=== PATIENT | female | born 1960 | race Caucasian/White ===

== ENCOUNTER → 2021-09-05 | Outpatient (CLI) | payer OTHER ==
[~2021-09-05] MED LIST: CEPH500 PO; DIPH50 PO; HYDACE5 PO; PRED10 PO; PROM25 PO; RXCODACET PO
== END | disposition home or self-care (01) ==
LOC: LAB SHORT 09:30
DX: L02.92 Furuncle, unspecified (principal)
CPT/HCPCS: 87070; 87077; 87147; 87186; 87205

== ENCOUNTER → 2022-02-16 | Outpatient (CLI) | payer OTHER | END | disposition home or self-care (01) | LOC: LAB SHORT 15:26 → LAB 15:26 | DX: L02.211 Cutaneous abscess of abdominal wall (principal) | CPT/HCPCS: 87070; 87075; 87077; 87147; 87186; 87205 ==

== ENCOUNTER → 2023-04-15 | Outpatient (CLI) | payer OTHER | LOC: LAB SHORT 12:15 → LAB 12:15 | DX: L02.92 Furuncle, unspecified (principal) | CPT/HCPCS: 87070; 87077; 87147; 87186; 87205 ==

== ENCOUNTER 2023-06-13 04:34 | Day surgery (SDC) | payer OTHER | END 2023-06-13 22:56 | disposition home or self-care (01) | LOC: WOUND 04:34 | DX: L02.91 Cutaneous abscess, unspecified (principal) | CPT/HCPCS: G0463 ==

== ENCOUNTER 2023-08-26 09:17 | Day surgery (SDC) | payer OTHER ==
[2023-08-29] MEDS ORDERED: CLINDAMYCI IV (10:44)
== END 2023-09-02 23:19 | disposition home or self-care (01) ==
LOC: MOI US 09:17
DX: C50.411 Malignant neoplasm of upper-outer quadrant of right female breast (principal)
CPT/HCPCS: 19285; 77065; A4648; G0279

== ENCOUNTER 2023-08-30 07:59 | Day surgery (SDC) | payer OTHER ==
[~2023-08-30] VITALS: Ht 172.7 cm; Wt 98.8 kg
[2023-08-30] VITALS (10 sets, daily range): BP systolic 103–145; BP diastolic 56–107
[~2023-08-30 07:59] MED LIST changes: +CLINDAMYCI IV
[2023-08-30] MEDS ORDERED: Vancomycin HCL 1,000 MG in NS 100 ML IV SCH (10:05)
[2023-08-30] MEDS ORDERED: Lactated Ringer's 1,000 ML IV SCH (10:05)
[2023-08-30] MEDS ORDERED: Clindamycin 600mg in D5W 50 ML IV SCH (10:05)
[2023-08-30] MEDS ORDERED: Lidocaine HCl 1% 5 ML SYR INJ ONE (10:35)
[2023-08-30] MEDS ORDERED: Midazolam HCl 1MG / ML 2ML Vial IV PRN (10:35)
--- NOTE | 2023-08-30 10:47 | NUR ---
Ambulatory in Day Surgery. Surgical site prepped with 2% Chlorhexidine cloth wipe. History, Chart, Medications and Allergies reviewed before start of procedure. Lungs clear T/O to Auscultation. Patient confirms NPO status and agrees with scheduled surgery. Pre-Op teaching done. Pt verbalizes understanding. Patient States Post-Procedure ride home has been arranged WITH FRIEND. DENTURES IN PATIENTS PURSE.
[2023-08-30] MEDS ORDERED: Bupivacaine 0.5% HCl 5 MG/ML 30MLVIAL ONE (11:09)
[2023-08-30] MEDS ORDERED: Methylene Blue 1% 100 MG/10 ML VIAL ONE (11:09)
[2023-08-30] MEDS ORDERED: SuccINYLCHOLINE Chloride 100 MG/5 ML 5MLSYR ONE (11:29)
--- NOTE | 2023-08-30 12:01 | NUR ---
08/30/23 1201 Cony Grubbs PRIOR TO COMING TO THE OR PATIENT ALSO RECEIVED VANCO 1GM IV IN THE PREOP SETTING.
[2023-08-30] MEDS ORDERED: FentaNYL Citrate 50 MCG/ML 2 ML Injection ONE (12:57)
[2023-08-30] MEDS ORDERED: HYDROcodone 5-APAP 325 TAB PO PRN (13:00)
[2023-08-30] MEDS ORDERED: HYDROmorphone HCl/Pf 1MG SYR ONE ×2 (13:16→14:06)
[2023-08-30] MEDS ORDERED: Rocuronium Bromide 10 MG/ML 5ML Injection IV ONE ×2 (14:07→15:44)
--- NOTE | 2023-08-30 14:24 | NUR ---
Discharge instructions reviewed with patient. Patient verbalizes understanding. Copy given to patient to take home. DRG C/D/I, BREAST BINDER ON. Patient States Post-Procedure ride home has been arranged.
[2023-08-30] MEDS ORDERED: Ketorolac Tromethamine 30mg Vial ONE (16:12)
== END 2023-08-30 14:25 | disposition home or self-care (01) ==
LOC: NM 07:59 → ORSCMMR 08:02 → NM 09:00
PROVIDERS: Surgery
PROC: 0HBT0ZZ Excision of Right Breast, Open Approach (ICD-10-PCS; principal; 2023-08-30 10:00)
DX: C50.411 Malignant neoplasm of upper-outer quadrant of right female breast (principal); Z17.0 Estrogen receptor positive status [ER+]; F17.210 Nicotine dependence, cigarettes, uncomplicated
CPT/HCPCS: 38792; 76098; 88307; 88342; A9270; A9520; J0330; J1170; J1885; J2250; J3010; J3370; J7120; Q9968

== ENCOUNTER 2025-04-05 12:25 | Emergency (ER) | payer MEDICARE, OTHER ==
[~2025-04-05] VITALS: Ht 172.7 cm; Wt 108.9 kg
[~2025-04-05 12:25] MED LIST changes: +SULTRIDS PO
[2025-04-05 12:55] LABS: BASOPHILS ABSOLUTE AUTO 0.03 K/mm3 (0.00-0.23); BASOPHILS PERCENT AUTO 0 % (0-2); EOSINOPHILS ABSOLUTE AUTO 0.14 K/mm3 (0.00-0.68); EOSINOPHILS PERCENT AUTO 1 % (0-6); Hematocrit 46.3 % (33.0-51.0); Hemoglobin 15.9 g/dL (11.5-16.0); IMMATURE GRAN ABSOLUTE AUTO 0.05 K/mm3 (0.00-0.10); IMMATURE GRAN PERCENT AUTO 0 % (0-1); LYMPHOCYTES ABSOLUTE AUTO 1.89 K/mm3 (0.84-5.20); LYMPHOCYTES PERCENT AUTO 15 % (21-46); MONOCYTES ABSOLUTE AUTO 1.17 K/mm3 (0.16-1.47); MONOCYTES PERCENT AUTO 9 % (4-13); Mean Corpuscular HGB Conc 34.3 g/dL (31.5-36.5); Mean Corpuscular Volume 94 fL (80-100); NEUTROPHILS ABSOLUTE AUTO 9.42 K/mm3 (1.96-9.15); NEUTROPHILS PERCENT AUTO 74 % (41-73); NRBC ABSOLUTE 0.00 K/mm3 (0.00-0.02); NRBC Auto 0.0 /100 WBC (0.0-0.2); Platelet Count 172 K/mm3 (150-400); RDW Coefficient Variation 12.3 % (11.7-14.2); RDW Standard Deviation 42.9 fL (35.1-46.3)
[2025-04-05 13:22] LABS: Alanine Aminotransfer (ALT/SGP 51.0 U/L (12-78); Albumin, Blood 3.2 g/dL (3.4-5.0); Albumin/Globulin Ratio 0.7 (0.8-1.8); Anion Gap 10.0 mmol/L (3-11); Aspartate Aminotrans (AST/SGOT 40.0 U/L (12-37); Bilirubin, Total 0.9 mg/dL (0.1-1.0); Blood Urea Nitrogen 10.0 mg/dL (8-24); CO2, Blood 24.0 mmol/L (21-32); Calcium, Blood 8.9 mg/dL (8.5-10.1); Chloride, Blood 105.0 mmol/L (98-108); Creatinine, Blood 0.6 mg/dL (0.40-1.00); Globulin, Blood 4.4 g/dL (2.2-4.0); Glucose, Blood 132.0 mg/dL (70-99); Potassium, Blood 4.1 mmol/L (3.5-5.5); Sodium, Blood 135.0 mmol/L (136-145); Total Protein, Blood 7.6 g/dL (6.4-8.2)
[2025-04-05 15:03] LABS: Source, Urine Clean Catch
[2025-04-05 15:07] LABS: Bilirubin, Urine Neg (Neg); Glucose Qualitative, Urine Neg (Neg); Ketones, Urine Neg (Neg); Leukocyte Esterase, Urine Neg (Neg); Protein, Urine Neg (Neg); Specific Gravity, Urine 1.020 (1.003-1.022); Urobilinogen, Urine NORM (Normal)
[2025-04-05 15:12] VITALS: BP 138/85
[2025-04-05 15:43] LABS: Color, Urine Yellow (P-Yellow)
[2025-04-05 15:44] LABS: Red Blood Cells, Urine 0-2 /hpf (0-2); White Blood Cells, Urine 0-2 /hpf (0-5)
== END 2025-04-05 17:24 | disposition home or self-care (01) ==
LOC: ER 12:25
PROVIDERS: Emergency Medicine
DX: R10.31 Right lower quadrant pain (principal)
CPT/HCPCS: 74177; 80053; 81001; 83690; 85025; 87086; 99284-25; Q9967